=== PATIENT | female | born 1980 | race African-American/Black ===

== ENCOUNTER 2019-08-02 06:05 | Emergency (ER) | payer OTHER ==
[~2019-08-02] VITALS: Ht 175.3 cm; Wt 123.0 kg
[2019-08-02 06:23] VITALS: BP 138/87
== END 2019-08-02 07:30 | disposition left against medical advice (07) ==
LOC: ER 06:05
DX: R05 Cough (principal); R06.02 Shortness of breath; R51 Headache; Z53.21 Procedure and treatment not carried out due to patient leaving prior to being seen by health care provider